=== PATIENT | male | born 1975 | race African-American/Black ===

== ENCOUNTER 2019-11-14 20:45 | Emergency (ER) | payer MEDICAID ==
[~2019-11-14] VITALS: Ht 172.7 cm; Wt 88.0 kg
[2019-11-14 23:06] VITALS: BP 102/60
== END 2019-11-14 23:09 | disposition home or self-care (01) ==
LOC: ER 20:45
DX: B34.9 Viral infection, unspecified (principal); I10 Essential (primary) hypertension
CPT/HCPCS: 99281